=== PATIENT | male | born 1995 | race African-American/Black ===

== ENCOUNTER 2017-06-11 20:28 | Emergency (ER) | payer OTHER ==
[2017-06-11 20:50] VITALS: RESP 18
--- NOTE | 2017-06-11 21:33 | XR ---
Exam: X-ray finger left. TECHNIQUE: 4 views of the left third digit were obtained. FINDINGS: No acute fracture or subluxation is identified. There is no radiopaque foreign body. Soft tissue defe ct is noted along the radial aspect of the distal aspect of the third digit. IMPRESSION: No fracture or subluxation is identified. There is no radiopaque foreign body.
--- NOTE | 2017-06-11 22:00 | ED ---
Wound/Laceration HPI - General Chief Complaint: Wound/Laceration Stated Complaint: L hand laceration Time Seen by Provider: 06/11/17 20:57 Source: patient Mode of arrival: ambulatory Limitations: no limitations - History of Present Illness Initial Comments: 22-year-old male patient presents to emergency department today for evaluation of a laceration to the middle finger on his left hand. 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 He states the laceration is to the tip of the finger and through his nail bed. Patient states that he did cover it and continued to work. Patient denies any numbness or tingling to the finger. Patient states that movement of the finger does cause pain. Patient states his last tetanus shot was last year. Patient denies any other injury. Patient denies any other physical symptoms. - Related Data Previous Rx's Medication Instructions Recorded Albuterol Sulfate [Proair Hfa] 2 puff INHALATION Q6HR PRN #1 01/09/16 inhaler Allergies Allergy/AdvReac Type Severity Reaction Status Date / Time No Known Allergies Allergy Verified 06/11/17 20:49 Review of Systems ROS Statement: Those systems with pertinent positive or pertinent negative responses have been documented in the HPI. ROS Other: All systems not noted in ROS Statement are negative. Past Medical History Past Medical History: Asthma History of Any Multi-Drug Resistant Organisms: None Reported Past Surgical History: No Surgical Hx Reported Past Psychological History: No Psychological Hx Reported Smoking Status: Current some day smoker Past Alcohol Use History: None Reported Past Drug Use History: Marijuana General Exam Limitations: no limitations General appearance: alert, in no apparent distress Eye exam: Present: normal appearance, PERRL, EOMI. Absent: scleral icterus, conjunctival injection, periorbital swelling ENT exam: Present: normal exam, mucous membranes moist Neck exam: Present: normal inspection. Absent: tenderness, meningismus, lymphadenopathy Respiratory exam: Present: normal lung sounds bilaterally. Absent: respiratory distress, wheezes, rales, rhonchi, stridor Cardiovascular Exam: Present: regular rate, normal rhythm, normal heart sounds. Absent: systolic murmur, diastolic murmur, rubs, gallop, clicks GI/Abdominal exam: Present: soft, normal bowel sounds. Absent: distended, tenderness, guarding, rebound, rigid Extremities exam: Present: other (Third finger left hand reveals a laceration to the tip involving the distal one fourth of the nail bed, injury to the nailbed is on the left side, laceration did not go completely through. Patient is able to flex the finger with pain.) Neurological exam: Present: alert, oriented X3, CN II-XII intact Psychiatric exam: Present: normal affect, normal mood Course Vital Signs 06/11/17 20:46 Temperature 97.8 F Pulse Rate 88 Respiratory 18 Rate Blood Pressure 124/75 O2 Sat by Pulse 99 Oximetry Procedures - Laceration Laceration #1 Consent Obtained: verbal consent Time Out Performed: Yes Indication: laceration Site: other (finger) Description: flap Depth: simple, single layer (Involves nail) Anesthetic Used: lidocaine 1%, without epi Anesthesia Technique: local infiltration Amount (mls): 1 Pre-repair: irrigated extensively Type of Sutures: nylon Size of Sutures: 5-0 Number of Sutures: 3 Technique: simple, interrupted Patient Tolerated Procedure: well Medical Decision Making - Medical Decision Making 22-year-old male patient presented for evaluation laceration to the third finger and his left hand. X-ray was obtained and did not reveal any acute fracture or other osseous abnormalities. Patient did have a tetanus shot one year ago. Wound irrigated, 3 sutures were placed. Instructions given regarding proper care. Instructed patient to return for any signs or symptoms of infection. Patient instructed to return for any new, worsening, or concerning symptoms. Patient instructed to follow-up with [facility] for further evaluation. Patient verbalized understanding and agrees with this plan. - Radiology Data Radiology results: report reviewed, image reviewed X-ray of the third digit left hand showed no acute fracture or subluxation. There is no radiopaque foreign body. Soft tissue defect is noted along the radial aspect of the distal aspect of the third digit. Impression by Dr. Yuan reveals no fracture or subluxation. No radiopaque foreign body. Disposition Clinical Impression: Nailbed laceration, finger, Finger laceration Disposition: HOME SELF-CARE Condition: Good Instructions: Finger Laceration (ED) Additional Instructions: Return for suture removal in 7-10 days. Watch for signs and symptoms of infection including increased redness, drainage of pus, increased pain, fever, or chills. Follow-up with [facility] in 1-2 days for recheck. Return for any new, worsening, or concerning symptoms. Referrals: None,Stated [Primary Care Provider] - 1-2 days Time of Disposition: 22:00
[2017-06-11 22:16] VITALS: BP 135/71; PULSE 89; TEMP 100.5
--- NOTE | 2017-06-14 10:29 | CDI ---
Documentation Clarification OP Dear Dr.Joceph Mckeon Please do addendum to ED report that provides Laceration length Thank you, Odilia Walters Supervisor [employer] If you have any questions, please contact Dining Chair Seat Cushion Trimmer at [phone] [facility]
== END 2017-06-11 22:14 | disposition home or self-care (01) ==
LOC: EC 20:28
DX: S61.313A Laceration without foreign body of left middle finger with damage to nail, initial encounter (principal); F17.200 Nicotine dependence, unspecified, uncomplicated; W45.8XXA Other foreign body or object entering through skin, initial encounter; Y92.69 Other specified industrial and construction area as the place of occurrence of the external cause
CPT/HCPCS: 12001; 99283

== ENCOUNTER 2020-04-29 10:06 | Emergency (ER) | payer OTHER ==
[2020-04-29 10:17] VITALS: BP 120/77; TEMP 98.4
[2020-04-29 10:27] VITALS: RESP 18
[2020-04-29] MEDS ORDERED: IPRATROPIUM-ALBUTEROL 3 ML NEB INHALATION STA (10:38)
--- NOTE | 2020-04-29 10:41 | ED ---
General Adult HPI - General Chief complaint: Shortness of Breath Stated complaint: asthma Time Seen by Provider: 04/29/20 10:19 Source: patient, RN notes reviewed Mode of arrival: ambulatory Limitations: no limitations - History of Present Illness Initial comments: 25-year-old male with a past medical history of asthma presents to the emergency department for asthma exacerbation. Patient states that he was at work when he started to feel short of breath and felt like he is having an asthma attack. States he was breathing very quickly. Patient went to [facility] and was sent to the emergency room. Patient states he actually feels much better at this time as he did use his inhaler at home. He denies fevers. Denies cough. Denies chest pain. Patient has no other complaints at this time including chest pain, abdominal pain, nausea or vomiting, headache, or visual changes. - Related Data Home Medications Medication Instructions Recorded Confirmed Albuterol Sulfate [Proair Hfa] 2 puff INHALATION Q6HR PRN 04/29/20 04/29/20 Previous Rx's Medication Instructions Recorded Albuterol Nebulized [Ventolin 2.5 mg INHALATION Q6H #20 nebu 04/29/20 Nebulized] predniSONE 50 mg PO DAILY #5 tablet 04/29/20 Allergies Allergy/AdvReac Type Severity Reaction Status Date / Time No Known Allergies Allergy Verified 04/29/20 10:41 Review of Systems ROS Statement: Those systems with pertinent positive or pertinent negative responses have been documented in the HPI. ROS Other: All systems not noted in ROS Statement are negative. Past Medical History Past Medical History: Asthma History of Any Multi-Drug Resistant Organisms: None Reported Past Surgical History: No Surgical Hx Reported Past Psychological History: No Psychological Hx Reported Smoking Status: Never smoker Past Alcohol Use History: None Reported Past Drug Use History: Marijuana General Exam Limitations: no limitations General appearance: alert, in no apparent distress Head exam: Present: atraumatic, normocephalic, normal inspection Eye exam: Present: normal appearance, PERRL, EOMI. Absent: scleral icterus, conjunctival injection, periorbital swelling ENT exam: Present: normal exam, mucous membranes moist Neck exam: Present: normal inspection, full ROM. Absent: tenderness, meningismus, lymphadenopathy Respiratory exam: Present: normal lung sounds bilaterally, other (Very minimal wheezing). Absent: respiratory distress, wheezes, rales, rhonchi, stridor Cardiovascular Exam: Present: regular rate, normal rhythm, normal heart sounds. Absent: systolic murmur, diastolic murmur, rubs, gallop, clicks GI/Abdominal exam: Present: soft, normal bowel sounds. Absent: distended, tenderness, guarding, rebound, rigid Neurological exam: Present: alert Course Vital Signs 04/29/20 04/29/20 10:15 10:24 Temperature 98.4 F Pulse Rate 66 Respiratory 20 18 Rate Blood Pressure 120/77 O2 Sat by Pulse 99 Oximetry Medical Decision Making - Medical Decision Making Patient was seen and evaluated. Prior to arrival he had used his inhaler. Wheezing was very minimal. Vitals were stable. Patient was not in respiratory distress. Patient was given an updraft and chest x-ray was obtained. Patient will be given steroids and discharged home. He will return for any worsening symptoms. Disposition Clinical Impression: Asthma exacerbation Disposition: HOME SELF-CARE Condition: Good Instructions (If sedation given, give patient instructions): Asthma (ED) Additional Instructions: Please use inhaler and updraft as directed. Use steroids as directed. Follow- up with primary care in 1-2 days. Return here to the emergency room for worsening symptoms. Prescriptions: predniSONE 50 mg PO DAILY #5 tablet Albuterol Nebulized [Ventolin Nebulized] 2.5 mg INHALATION Q6H #20 nebu Is patient prescribed a controlled substance at d/c from ED?: No Referrals: Mallorie Drew MD [REFERRING] - 1-2 days Time of Disposition: 10:42
--- NOTE | 2020-04-29 10:54 | XR ---
EXAMINATION TYPE: XR chest 1V portable DATE OF EXAM: 04/29/2020 COMPARISON: None INDICATION: Asthma TECHNIQUE: Single frontal view of the chest is obtained. FINDINGS: The heart size is normal. The pulmonary vasculature is normal. The lungs are clear. IMPRESSION: 1. No acute pulmonary process.
[2020-04-29 11:00] VITALS: PULSE 72
== END 2020-04-29 11:09 | disposition home or self-care (01) ==
LOC: EC 10:06
DX: J45.901 Unspecified asthma with (acute) exacerbation (principal)
CPT/HCPCS: 71045; 94640; 99285